=== PATIENT | male | born 1965 | race Caucasian/White ===

== ENCOUNTER 2022-04-02 10:11 | Outpatient (CLI) | payer OTHER, MEDICAID, SELFPAY ==
--- NOTE | 2022-04-02 10:15 | TELERAD_ITS ---
[address] [address] Phone:?[phone] Fax:?[phone] Referring Physician Information: Ap Andrade [address] [facility] [address] Phone:?[phone] Fax:?[phone] Patient:?Ervin Chinchilla Ariana.Alize.B:?1965 Sex:?Male Phone:?[phone] [facility] MRN:?[id number] Exam Date:?04/02/2022 ? EXAM: MRI of the RIGHT SHOULDER, without contrast CLINICAL INFORMATION: Male, 56 years old, with shoulder pain. INDICATION: Shoulder pain PRIOR SURGERY: None reported. PLAIN FILMS: None available. COMPARISONS: No prior MRIs available. TECHNICAL INFORMATION: Using a 1.5T MR scanner and a localizing surface coil: Coronals: PD, T2FS Sagittals: PDFS, T2 Axials: PD, PDFS SEDATION: None CONTRAST: None FINDINGS: Bones: Proximal humerus: No fracture or marrow edema/pathology. No humeral Hill-Sachs or reverse Hill-Sachs lesion/impaction or contusion. Glenoid: No fracture or marrow edema/pathology. No osseous Bankart lesion. Rotator cuff and muscles/tendons: Supraspinatus: Full-thickness or essentially full-thickness articular and interstitial tearing of the anterior mid supraspinatus at the insertional footprint measuring 14 mm in AP dimension (coronal series 4 image 9, and sagittal series 8 image 5). Thin articular sided fibers are felt to be intact. Torn tendon fibers are retracted approximately 1.4 cm. No muscle belly atrophy. Infraspinatus: Moderate infraspinatus thickening and tendinosis with intermediate grade articular sided tearing of the anterior distal tendon at the insertional footprint measuring 6 mm in AP dimension and involving approximately 50% tendon thickness (coronal series 4 image 12, and sagittal series 8 image 4). Teres minor: No tendinopathy, tear or atrophy. Subscapularis: Mild subscapularis tendinosis without rotator cuff tear. Deltoid: No strain or atrophy. Coracoacromial arch: Acromion morphology: The acromion has type II morphology. No discrete subacromial osseous spur or os acromiale. Acromiohumeral space: The acromiohumeral space is within normal limits. Coracohumeral space: The coracohumeral space is within normal limits. Acromioclavicular joint: Joint: Mild AC joint arthrosis without impinging inferior osteophytosis Ligaments: Coracoclavicular ligaments are intact. Bursae: Subacromial-subdeltoid: Trace subacromial bursitis Subcoracoid: No convincing subcoracoid bursal thickening/bursitis. Biceps tendon: The long head of the biceps tendon is present within the bicipital groove. The intra-articular and extra-articular segments are intact without tendinosis, tenosynovitis, or displacement. Glenohumeral joint: Effusion/cyst: No significant glenohumeral joint effusion. Articular cartilage: Humeral head: No osteochondral abnormalities. Glenoid: No osteochondral abnormalities. Loose bodies: No discrete intra-articular body within the joint. Labrum:?No discrete SLAP tear. No other definite evidence for labral tear. No paralabral ganglion cyst is identified. Inferior glenohumeral ligament/axillary pouch:?Intact. The axillary pouch is normal in thickness and signal. No evidence of adhesive capsulitis or capsular injury. IMPRESSION: 1. Full thickness or essentially full-thickness articular and interstitial tearing of the anterior supraspinatus at the insertional footprint measuring 1.4 cm in AP dimension, with retraction of torn tendon fibers approximately 1.4 cm. Thin articular sided fibers are felt to be intact. No muscle belly atrophy. 2. Moderate infraspinatus tendinosis with intermediate grade articular sided tearing of the anterior distal tendon measuring 6 mm in AP dimension. 3. Mild subscapularis tendinosis without rotator cuff tear. 4. No labral tear or paralabral cyst. 5. No tendinopathy, tear, or displacement of the long head of the biceps tendon. 6. Mild AC joint arthrosis without impinging inferior osteophytosis. Trace subacromial bursitis. 7. No osteochondral defect. KME Electronically signed on 04/02/2022 3:38:00 PM by Millie Moore M.D.
== END 2022-04-02 10:12 | disposition home or self-care (01) ==
PROVIDERS: PCP Surgery; Visit Provider Physician Assistant
DX: M25.511 Pain in right shoulder (principal); S43.431A Superior glenoid labrum lesion of right shoulder, initial encounter; M19.011 Primary osteoarthritis, right shoulder; M75.51 Bursitis of right shoulder
CPT/HCPCS: 73221

== ENCOUNTER 2022-05-08 06:09 | Day surgery (SDC) | payer OTHER, MEDICAID, SELFPAY ==
[2022-05-08] VITALS (16 sets, daily range): BP systolic 103–140; BP diastolic 50–81; PULSE 55–75; RESP 14–18; TEMP 36.4–36.6; O2SAT 93–99; BMI 28.6
[2022-05-08] MEDS: ACETAMINOPHEN 500 MG TABLET 1000 MG PO (06:36)
[2022-05-08] MEDS: CELECOXIB 200 MG CAPSULE PO (06:36)
[2022-05-08] MEDS: OXYCODONE (CR) 10 MG TAB.ER.12H PO (06:36)
[2022-05-08] MEDS: SODIUM CHLORIDE 0.9 % (FLUSH) 10 ML SYRINGE IVF (06:42)
[2022-05-08] MEDS: LACTATED RINGERS 1000 ML 1,000 ML 100 ML IV (06:42)
[2022-05-08] MEDS: MIDAZOLAM HCL 1 MG/ML inj IVP (07:16)
[2022-05-08] MEDS: fentaNYL 100 MCG/2 ML inj IVP (07:16)
--- NOTE | 2022-05-08 07:18 | SUR.PREOP ---
TIME?OUT:?0715 PT/Franco BENITES RN/Blaise SPENCE MDA?VERIFICATION?OF?SURGICAL?SITE,?PROCEDURE,?AND?CONSENT OBTAINED?PRIOR?TO?INVASIVE?PROCEDURE.
--- NOTE | 2022-05-08 07:20 | P.NB_ITS ---
Nerve Block Nerve Block Time Seen by Provider: 07:20 Date Seen: 05/08/22 Type of block requested by surgeon for post-operative analgesia: interscalene Time out performed: Yes Verification of patient name: Yes Verification of date of : Yes Site marking: site marked Name of person performing procedure: Jose Continuous monitoring Was continuous monitoring of O2 sat, B/P, manager placement, recorded every 15 minutes?: Yes Procedure Checklist: sterile prep, needles and gloves Ultrasound guided. Images saved: Yes Medications given in 5ml increments after negative aspiration: Marcaine %: 0.5 mL: 20 Needle gauge: 22 Decadron (mg): 10 Precedex (mcg): 25 Patient tolerated procedure well: Yes Block Charges Block Charge (with Pro Fee): Brachial Plexus Use of Ultrasound Machine for Block: Yes- US Guidance/pain block
[2022-05-08] MEDS: CEFAZOLIN 2 GM INJ IVP (07:56)
[2022-05-08] MEDS: SODIUM CHLORIDE IRRIG SOLUTION 3,000 ML, EPINEPHrine 1 MG IRRIGATION (08:21)
--- NOTE | 2022-05-08 09:29 | P.ORPRC_ITS ---
Procedure Note Date of procedure: 05/08/22 Procedure: SURGEON: Tuan Adamson MD SHEARER SCREEN MEASURER AND TRIMMER: Iliana Brown PA-C PREOPERATIVE DIAGNOSIS: Right shoulder rotator cuff tear, AC joint arthrosis, biceps tendinopathy POSTOPERATIVE DIAGNOSIS: Right shoulder rotator cuff tear, AC joint arthrosis, biceps tendinopathy NAME OF OPERATION: Right shoulder arthroscopic subacromial decompression, distal clavicle excision, mini open rotator cuff repair, biceps tenodesis ANESTHESIA: Supraclavicular block plus general endotracheal ESTIMATED BLOOD LOSS: 5 mL COMPLICATIONS: None SPECIMENS: None DRAINS: None PREOPERATIVE ANTIBIOTICS: Ancef 2 grams INDICATIONS: The patient is a 56-year-old male with a history of right shoulder pain secondary to the above diagnoses. Despite appropriate non operative management, they continue to have symptoms. Operative intervention was recommended. The risks, benefits and expected outcomes were discussed in detail. These included but were not limited to: Infection, bleeding, injury to blood vessel or nerve, venous thromboembolism. All questions were answered to their satisfaction. PROCEDURE: A supraclavicular block was placed by Anesthesia. General anesthesia was administered. The patient was placed in the high beach chair position. The right shoulder was prepped and draped in the usual sterile fashion. The glenohumeral joint was infiltrated with 20 mL of normal saline with epinephrine. The posterior portal was established, the arthroscope was i ntroduced. The anterior portal was established, Diagnostic arthroscopy was performed with findings as follows: The biceps shows a marked amount of intra- articular tendinopathy. The anterior, posterior and superior labrum show age related degenerative change. Articular surfaces on the humeral head and glenoid are normal. There are no loose bodies. There is a full-thickness tear of the supraspinatus. The biceps was tenotomized with the arthroscopic scissors. The labrum was debrided with the shaver. The arthroscope was placed in the subacromial space, the lateral portal was established. The Arthrex [place] was used to dissect the acromion free. The CA ligament was recessed off the anterior acromion, the AC joint was exposed. The acromioplasty was performed with the bur in the posterior portal. The bur was then placed in the lateral portal and the lateral and anterior aspect of the acromion were resected. The undersurface of the distal clavicle was resected through the lateral portal. Finally, the bur was placed in the anterior portal and the remainder of the distal clavicle was resected for a total of 10 mm. An accessory anterolateral portal was placed. The subacromial/subdeltoid bursa was aggressively debrided. There is a full-thickness tear of the supraspinatus. Arthroscopic instruments were removed. The accessory anterolateral portal was extended proximally and distally, subcutaneous dissection was taken with electrocautery to the deltoid. The deltoid was divided in line with its fibers. The static retractor was placed. The subacromial/subdeltoid bursa was debrided with the Schultz scissors. The greater tuberosity was debrided to punctate bleeding bone using the arthroscopic bur. Two Arthrex BioComposite SwiveLock anchors were placed just off the articular surface. Both limbs of the FiberWire and fiber tape were passed using the scorpion. A fiber link was placed in the leading edge of the rotator cuff x2. A soft tissue biceps tenodesis was done in the groove with a # 2 FiberWire suture x2. We tied the 2 central FiberWire sutures over the rotator cuff. We then proceeded with a lateral row of SwiveLock anchors x 2 crossing the FiberTape and incorporating the FiberWire and fiber link into each lateral row anchor. This provides an anatomic, watertight repair of the rotator cuff. There is no tension on the repair with the shoulder at 0? abduction. The wound was irrigated with normal saline off the pump. The deltoid was repaired with an 0 Vicryl in an interrupted [id number] fashion. Subcutaneous tissues were closed with a 3-0 Vicryl. Skin was closed with a 3-0 Monocryl in a subcuticular fashion. A dry dressing, polar care and sling were applied. Sponge and needle counts were correct x2. The patient tolerated the procedure well. There were no apparent complications. They were carefully transferred to the hospital bed and taken to the postanesthesia care unit in satisfactory condition. PLAN: The patient will be discharged to home. No active range of motion of the shoulder will be allowed for 6 weeks postoperatively. They can work on active range of motion of the elbow, wrist and fingers. They will follow up in the office next week for a wound check and an AP and transscapular Y-view of the shoulder prior to being seen.
--- NOTE | 2022-05-08 10:00 | W.ANESCHARGE ---
Anesthesia Charges Start Date/Time Anesthesia Start Date: 05/08/22 Anesthesia Start Time: 07:46 Stop Date/Time Anesthesia Stop Date: 05/08/22 Anesthesia Stop Time: 09:56 Summary Emergency: No
--- NOTE | 2022-05-08 10:18 | W.ANESCHARGE ---
Anesthesia Charges Start Date/Time Anesthesia Start Date: 05/08/22 Anesthesia Start Time: 07:46 Stop Date/Time Anesthesia Stop Date: 05/08/22 Anesthesia Stop Time: 09:56 Summary Emergency: No
== END 2022-05-08 12:00 | disposition home or self-care (01) ==
PROVIDERS: PCP Surgery; Visit Provider Orthopaedic Surgery
PROC: (CPT 23412; principal; 2022-05-08 07:30)
DX: M75.121 Complete rotator cuff tear or rupture of right shoulder, not specified as traumatic (principal); M19.011 Primary osteoarthritis, right shoulder; M75.21 Bicipital tendinitis, right shoulder
CPT/HCPCS: 29826; 29824; 23430; 23412; 1630; 64415; 76942; A9270; C1713; J0171; J0330; J0690; J1100; J2250; J2405; J2704; J3010; J3490; J7120; L3670

== ENCOUNTER 2023-05-19 06:11 | Day surgery (SDC) | payer OTHER, MEDICAID, SELFPAY ==
[2023-05-19] VITALS (10 sets, daily range): BP systolic 138–174; BP diastolic 75–92; PULSE 74–83; RESP 16–20; TEMP 36.9; O2SAT 96–99; BMI 28.4
[2023-05-19] MEDS: CEFAZOLIN 2 GM INJ IVP (06:10)
[2023-05-19] MEDS: SODIUM CHLORIDE 0.9 % (FLUSH) 10 ML SYRINGE IVF (07:14)
--- NOTE | 2023-05-19 07:15 | SUR.PREOP ---
Dr. Adamson aware of PCN allergy still wanted pt to recieve Ancef ancef started slowly for test dose cirulator RN aware of allergy also
[2023-05-19] MEDS: lidocaine HCL 2 % MULTIDOSE 20 ML VIAL INJECTION (07:20)
[2023-05-19] MEDS: BUPIVACAINE 0.5% 30 ML INJECTION (07:20)
--- NOTE | 2023-05-19 08:16 | PM.ORPRC ---
Procedure Note Date of procedure: 05/19/23 Procedure: Preop diagnosis: Right upper extremity carpal tunnel syndrome Postop diagnosis: Right upper extremity carpal tunnel syndrome Procedure: Right upper extremity carpal tunnel release Anesthesia: Local Surgeon: Tuan Adamson MD assistant superintendent for curriculum: HUBER Mazariegos EBL: 5 mL Complications: None Specimens: None Drains: None Indications: The patient has a history of right upper extremity carpal tunnel syndrome symptoms. Despite appropriate nonoperative management consisting of nighttime bracing and occupational therapy they continue to have symptoms. Operative intervention was recommended. The risks, benefits alternatives and expected outcomes were discussed in detail. These included but were not limited to: Infection, bleeding, injury to blood vessel or nerve, venous thromboembolism. All questions were answered to their satisfaction. The patient was placed supine on the operating room table. Local anesthesia was established with 0.5% Marcaine without epinephrine and 2% lidocaine without epinephrine. The hand was prepped and draped in usual sterile fashion. The limb was elevated the forearm pneumatic tourniquet was inflated to 250 mm of mercury. A longitudinal incision was made centered over the radial border of the ring finger at the base of the palm. Subcutaneous dissection was sharply taken through the palmar fascia and the palmaris brevis to the transverse carpal ligament. The ligament was divided in line with the incision. Proximal and distal dissection was carried with tenotomy and Metzenbaum scissors for a wide decompression of the carpal tunnel. The tourniquet was released , bleeding was controlled with direct pressure. The wound was closed with a 3-0 nylon. A bulky dry dressing was applied, sponge and needle counts were correct x 2. The patient tolerated the procedure well, there were no apparent complications. They were sent to same day surgery in satisfactory condition. Plan: Use of the hand as tolerates. Discontinue the intraoperative dressing on postoperative day 3 and may get the wound wet as tolerates. Follow up in the office in 2 weeks for a wound check and suture removal.
== END 2023-05-19 08:41 | disposition home or self-care (01) ==
PROVIDERS: PCP Surgery; Visit Provider Orthopaedic Surgery
PROC: (CPT 64721; principal; 2023-05-19 07:15)
DX: G56.01 Carpal tunnel syndrome, right upper limb (principal)
CPT/HCPCS: 64721; J0665; J0690

== ENCOUNTER 2024-02-16 11:35 | Emergency (ER) | payer OTHER, SELFPAY ==
[2024-02-16 11:38] VITALS: BP 156/87; PULSE 80; RESP 16; TEMP 36.8; O2SAT 95; BMI 29.5
--- NOTE | 2024-02-16 11:41 | XR_ITS ---
Patient: ISABEL NAIDU Facility:?[facility] Patient ID:?[id number] Site Patient ID:?[id number]. Site :?1965 Study:?XRay-Extremity Left SHOULDER-02/16/2024 11:58:27 AM Ordering Physician:SARAH Final Report: INDICATION: Fell off a trailer, left-sided shoulder pain COMPARISON: None. TECHNIQUE: Three views left shoulder FINDINGS: No fracture. Normal alignment. Mild degeneration at the acromioclavicular joint. The glenohumeral joint is preserved. No focal bone lesions. Normal bone mineralization. Soft tissues are normal. No foreign body. IMPRESSION: No acute or traumatic findings of the left shoulder. Dictated by Aniyah Sánchez MD @ 02/16/2024 12:02:37 PM Signed by:?Aniyah Sánchez MD @02/16/2024 12:02:37 PM (Electronic Signature)
--- OUTSIDE RECORDS SUMMARY | 2024-02-16 12:34 | XMS_ITS | Referral Summary ---
Author Name Unknown Organization [facility] Address [address] [place] [id number] Care Team Providers Care Yardage Control Clerk Name Role Phone Jacqueline Estevez MD Primary Care Provider Unavailabl e Allergies Active Allergy Reactions Criticality Noted Date Comments Influenza Virus Vaccine 07/04/2021 Penicillins Nausea and Vomiting 07/04/2021 Tetanus Toxoid 07/04/2021 Medications Medication Sig Dispensed Refills Start Date End Date Status losartan (COZAAR) 100 MG tablet Take 100 mg by mouth daily Active tadalafil (CIALIS) 20 MG tablet Take 10 mg by mouth every 3 days Active aspirin (ASA) 81 MG chewable tabletIndications:P arapelvic renal cyst Take 1 tablet (81 mg) by mouth daily 07/22/2021 Active acetaminophen (TYLENOL) 325 MG tabletIndications:P arapelvic renal cyst Take 1-2 tablets (325-650 mg) by mouth every 4 hours as needed for mild pain or fever 07/09/2021 Active oxyCODONE (ROXICODONE) 5 MG tabletIndications:P arapelvic renal cyst Take 1-2 tablets (5-10 mg) by mouth every 6 hours as needed for moderate to severe pain 16 tablet 07/09/2021 Active polyethylene glycol (MIRALAX) 17 GM/Dose powderIndications:P arapelvic renal cyst Take 17 g by mouth daily Discontinue if your stools become loose. 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 Other hydronephrosis 07/08/2021 Type 2 diabetes mellitus wit h both eyes affected by mild nonproliferative retinopathy without macular edema, without long-term current use of insulin 06/17/2016 Essential hypertension 11/21/2014 GERD (gastroesophageal reflux disease) 5 Social History Tobacco Use Types Packs/Day Years Used Date Smoking Tobacco: Former Cigarettes Q uit: 2009 Smokeless Tobacco: Never Alcohol Use Standard Drinks/Week Comments Yes 0 (1 standard drink = 0.6 oz pure alcohol) Beer: 4-6 daily, sometimes more Adolescent Education Answer Date Record ed Getting School Help Needed Not on file 06/20 Sex and Gender Information Value Date Recorded Sex Assigned at Not on file Gender Identity Not on file Sexual Orientation Not on file Last Filed Vital Signs Vital Sign Reading Time Taken Comments Blood Pressure 133/70 07/10/2021 11:14 AM CDT Pulse 70 07/10/2021 11:14 AM CDT Temperature 36.8 ??C (98.3 ??F) 07/10/2021 11:14 AM C DT Respiratory Rate 16 07/10/2021 11:14 AM CDT Oxygen Saturation 93% 07/10/2021 11:14 AM CDT Inhaled Oxygen Concentration - - Weight 87.8 kg (193 lb 9.6 oz) 07/08/2021 12:25 PM CDT Height 177.8 cm (5' 10) 07/08/2021 12:25 PM CDT Body Mass Index 27.78 07/08/2021 12:25 PM CDT Plan of Treatment Not on file Medical Devices Implanted Type Area Blueprint Assembler Device Identifier Shelf Expiration Date Model / Serial / Lot Stent Ureteral Percuflex Plus [id number] - [id number] Implanted:Qty : 1 on 07/08/2021 by Douglas Morrow MD at [facility] Stent Right: Ureter [employer] [id number] 03/26/2024 [id number] Procedures Procedure Name Priority Date/Time Associated Diagnosis Comments CTA CHEST ABDOMEN PELVIS W CONTRAST STAT 07/09/2021 8:52 AM CDT BASIC METABOLIC PANEL Routine 07/09/2021 5:38 AM CDT HEMOGLOBIN A1C Routine 07/08/2021 1:28 PM CDT ALBUMIN RANDOM URINE QUANTITATIVE Routine 01/01/2006 8:44 AM CDT HIV 1 AND 2 ANTIBODY ([facility]) Routine 01/01/2006 8:35 AM CDT HEPATITIS C ANTIBODY Routine 01/01/2006 8:35 AM CDT LIPID PROFILE Routine 01/01/2006 8:35 AM CDT from Last 3 Months or Most Recently Relevant to Health Maintenance Results * CTA Chest Abdomen Pelvis w Contrast (07/09/2021 8:52 AM CDT) Anatomical Region Laterality Modality Lower Extremity, SUBRAD IR P ROCEDURE, UMP CT CTA, RAD CT Computed Tomography 07/09/2021 8:44 AM CDT Impressions 07/09/2021 11:40 AM CDT IMPRESSION: 1. ??Thoracic and abdominal aorta, pulmonary arteries and brachiocephalic, visceral and iliofemoral arteries are normal. 2. ??Expected day 1 postop change related to decortication large parapelvic cyst right kidney (as detailed above) with development of a few small parenchymal perfusion defects and an overall decrease in previously seen hydronephrosis. 3. ??Right ureteral stent well-positioned. 4. ??Small volume hemoperitoneum in the pelvis. 5. ??Hepatic steatosis and high likelihood of cirrhosis as well as splenic enlargement and recanalization of the umbilical vein which are signs of portal hypertension. 6. ??At delayed imaging there are several linear foci of persistent nephrographic contrast material is nonspecific but could indicate mild acute kidney injury. 7. 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 Narrative 07/09/2021 11:40 AM CDT EXAM: CTA CHEST ABDOMEN PELVIS W CONTRAST LOCATION: [facility] DATE/TIME: 07/09/2021 8:44 AM INDICATION: Sudden onset abdominal pain, tenderness and distention in a patient status post 07/08/2021 laparoscopic decortication of a large parapelvic cyst right kidney and stent placement. Hypertension. Diabetes. COMPARISON: [facility] AP 01/28/2021 03/20/2020. TECHNIQUE: Noncontrast CT imaging of the chest and upper abdomen. CT angiogram chest abdomen pelvis during arterial phase of injection of IV contrast. Delayed phase CT imaging abdomen and pelvis. 2D and 3D MIP reconstructions were performed by the x ray technologist. Dose reduction techniques were used. CONTRAST: 100 mL Isovue 370. FINDINGS: CTA CHEST, ABDOMEN and PELVIS: Normal caliber thoracic aorta with no dissection or sign of acute aortic syndrome. Normal caliber pulmonary arteries with no visible pulmonary emboli. Brachiocephalic arteries unremarkable. Mild to moderate calcified atheromatous plaque scattered throughout the normal caliber abdominal aorta and iliofemoral arteries. Abdominal aorta and mesenteric, renal and iliofemoral arteries are widely patent with no dissection, stenosis or filling defect. LUNGS AND PLEURA: Trace amount of secretion in the dependent portion of the right lower lobe bronchus, minimal dependent atelectasis posterior basilar segment each lower lobe. Lungs are otherwise clear. No pleural effusion. MEDIASTINUM/AXILLAE: No lymphadenopathy. Heart size within normal limits. Mild thickening and calcification of the aortic valve leaflets. No pericardial effusion. CORONARY ARTERY CALCIFICATION: Mild calcification RCA and moderate calcification LAD coronary artery. HEPATOBILIARY: Moderate diffuse hepatic steatosis. Significant contour irregularity liver and asymmetric hypertrophy of the lateral segment left hepatic highly suspicious for cirrhosis. No liver mass. Main portal vein patent. Recanalization of the small caliber umbilical vein. No bile duct dilatation or calcified gallstones. PANCREAS: Normal. SPLEEN: Spleen is enlarged at 15 cm. ADRENAL GLANDS: Normal. RIGHT KIDNEY AND URETER: Interval placement well-positioned right ureteral stent and laparoscopic decortication and decompression of the large right parapelvic renal cyst which has decreased in size from 9.5 x 9.0 x 8.0 cm to 6.5 x 5.0 x 4.5 cm today. Several small foci of decreased renal cortical parenchymal perfusion posterolateral aspect mid right kidney have developed. No leakage of contrast material from the right urinary collecting system. Previously seen moderate right pyelocaliectasis has decreased. Typical day 1 postsurgical findings of small volume pneumoperitoneum upper abdomen anteriorly, gas in the right retroperitoneal fat and subcutaneous and intramuscular emphysema right lower chest and abdominal wall. 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 At delayed imaging there are several linear foci of persistent nephrographic contrast material. Left kidney and ureters otherwise normal. BLADDER: Hill catheter is well positioned in the bladder. Bladder otherwise normal. BOWEL: Normal appendix. Mild colonic diverticulosis. Bowel is otherwise normal with no obstruction or inflammatory change. Small volume hemoperitoneum in the pelvis. LYMPH NODES: No lymphadenopathy. PELVIC ORGANS: No pelvic mass or fluid. MUSCULOSKELETAL: No suspicious bone lesions. Old right rib fractures. Procedure Note Osmar Bautista MD - 07/09/2021 EXAM: CTA CHEST ABDOMEN PELVIS W CONTRAST LOCATION: [facility] DATE/TIME: 07/09/2021 8:44 AM INDICATION: Sudden onset abdominal pain, tenderness and distention in apatient status post 07/08/2021 laparoscopic decortication of a largeparapelvic cyst right kidney and stent placement. Hypertension.Diabetes. COMPARISON: [facility] 01/28/2021 03/20/2020. TECHNIQUE: Noncontrast CT imaging of the chest and upper abdomen. CTangiogram chest abdomen pelvis during arterial phase of injection of IVcontrast. Delayed phase CT imaging abdomen and pelvis. 2D and 3D MIPreconstructions were performed by the x ray technologist. Dose reduction techniques were used. CONTRAST: 100 mL Isovue 370. FINDINGS: CTA CHEST, ABDOMEN and PELVIS: Normal caliber thoracic aorta with nodissection or sign of acute aortic syndrome. Normal caliber pulmonaryarteries with no visible pulmonary emboli. Brachiocephalic arteriesunremarkable. Mild to moderate calcified atheromatous plaque scattered throughout thenormal caliber abdominal aorta and iliofemoral arteries. Abdominal aortaand mesenteric, renal and iliofemoral arteries are widely patent with nodissection, stenosis or filling defect. LUNGS AND PLEURA: Trace amount of secretion in the dependent portion ofthe right lower lobe bronchus, minimal dependent atelectasis posteriorbasilar segment each lower lobe. Lungs are otherwise clear. No pleuraleffusion. MEDIASTINUM/AXILLAE: No lymphadenopathy. Heart size within normal limits.Mild thickening and calcification of the aortic valve leaflets. Nopericardial effusion. CORONARY ARTERY CALCIFICATION: Mild calcification RCA and moderatecalcification LAD coronary artery. HEPATOBILIARY: Moderate diffuse hepatic steatosis. Significant contourirregularity liver and asymmetric hypertrophy of the lateral segment lefthepatic highly suspicious for cirrhosis. No liver mass. Main portal veinpatent. Recanalization of the small caliber umbilical vein. No bile duct dilatation or calcified gallstones. PANCREAS: Normal. SPLEEN: Spleen is enlarged at 15 cm. ADRENAL GLANDS: Normal. RIGHT KIDNEY AND URETER: Interval placement well-positioned right ureteralstent and laparoscopic decortication and decompression of the large rightparapelvic renal cyst which has decreased in size from 9.5 x 9.0 x 8.0 cmto 6.5 x 5.0 x 4.5 cm today. Several small foci of decreased renal cortical parenchymal perfusionposterolateral aspect mid right kidney have developed. No leakage ofcontrast material from the right urinary collecting system. Previouslyseen moderate right pyelocaliectasis has decreased. Typical day 1 postsurgical findings of small volumepneumoperitoneum upper abdomen anteriorly, gas in the rightretroperitoneal fat and subcutaneous and intramuscular emphysema rightlower chest and abdominal wall. LEFT KIDNEY AND URETER: Normal variant duplication of the left urinarycollecting system with the duplicated ureters either joining one anotherat the ureterovesical junction or inserting at the ureterovesical junctionadjacent to one another. At delayed imaging there are several linear foci of persistent nephrographiccontrast material. Left kidney and ureters otherwise normal. BLADDER: Hill catheter is well positioned in the bladder. Bladderotherwise normal. BOWEL: Normal appendix. Mild colonic diverticulosis. Bowel is otherwisenormal with no obstruction or inflammatory change. Small volumehemoperitoneum in the pelvis. LYMPH NODES: No lymphadenopathy. PELVIC ORGANS: No pelvic mass or fluid. MUSCULOSKELETAL: No suspicious bone lesions. Old right rib fractures. IMPRESSION: 1. Thoracic and abdominal aorta, pulmonary arteries and brachiocephalic,visceral and iliofemoral arteries are normal. 2. Expected day 1 postop change related to decortication large parapelviccyst right kidney (as detailed above) with development of a few smallparenchymal perfusion defects and an overall decrease in previously seenhydronephrosis. 3. Right ureteral stent well-positioned. 4. Small volume hemoperitoneum in the pelvis. 5. Hepatic steatosis and high likelihood of cirrhosis as well as splenicenlargement and recanalization of the umbilical vein which are signs ofportal hypertension. 6. At delayed imaging there are several linear foci of persistentnephrographic contrast material is nonspecific but could indicate mildacute kidney injury. 7. 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 Urszula Levin MD IMG CT ORDERABLES * Basic metabolic panel (07/09/2021 5:38 AM CDT) Sodium 140 136 - 145 mmol/L 07/09/2021 6:39 AM CDT [facility] Potassium 4.0 3.5 - 5.0 mmol/L 07/09/2021 6:39 AM CDT [facility] Chloride 107 98 - 107 mmol/L 07/09/2021 6:39 AM CDT [facility] Carbon Dioxide (CO2) 26 22 - 31 mmol/L 07/09/2021 6:39 AM CDT [facility] Anion Gap 7 5 - 18 mmol/L 07/09/2021 6:39 AM CDT [facility] Urea Nitrogen 9 8 - 22 mg/dL 07/09/2021 6:39 AM CDT [facility] Creatinine 0.86 0.70 - 1.30 mg/dL 07/09/2021 6:39 AM CDT [facility] Calcium 8.8 8.5 - 10.5 mg/dL 07/09/2021 6:39 AM CDT [facility] Glucose 103 70 - 125 mg/dL 07/09/2021 6:39 AM CDT [facility] GFR Estimate >90 >60 mL/min/1.7 3m2 07/09/2021 6:39 AM CDT [facility] Comment:As of April 07, 2021, eGFR is calculated by the CKD-EPI creatinine equation, without race adjustment. eGFR can be influenced by muscle mass, exercise, and diet. The reported eGFR is an estimation only and is only applicable if the renal function is stable. Blood STRUCTURE OF RIGHT UPPER LIMB / Unknown Venipuncture / Unknown 07/09/2021 5:38 AM CDT 07/09/2021 6:09 AM CDT Douglas Morrow MD LAB - BLOOD ORDERABL ES [facility] [address] [place] [address], [facility] [phone] * Hemoglobin A1c (07/08/2021 1:28 PM CDT) Hemoglobin A1C 5.6 <=5.6 % 07/08/2021 1:56 PM CDT [facility] Comment: Prediabetes: 5.7 to 6.4% ? Diabetes: ??>=6.5% Patients with Hgb F >5%, total bilirubin >10.0 mg/dL, abnormal red cell turnover, severe renal or hepatic disease or malignancy should not have this A1C method used to diagnose or monitor diabetes. Blood STRUCTURE OF RIGHT UPPER LIMB / Unknown Venipuncture / Unknown 07/08/2021 1:28 PM CDT 07/08/2021 1:45 PM CDT Joie Barajas MD LAB - BLOOD ORDERAB LES Performing Organization Address City/[facility]/ZIP Co de Phone Number [facility] [address] [place] [address], [facility] [phone] * Microalbumin quantitative random urine (01/01/2006 8:44 AM CDT) Albumin Urine mg/L 6 mg/L [facility] Albumin Urine mg/g Cr 5.38 0 - 20 mg/g Cr [facility] 01/01/2006 8:44 AM CDT 01/01/2006 8:46 AM CDT Jad Richard MD LAB - URINE ORDERABL ES [facility] * (ABNORMAL) Lipid panel (01/01/2006 8:35 AM CDT) Cholesterol 204(H) 0 - 200 mg/dL [facility] Comment: LDL Cholesterol is the primary guide to therapy: LDL-cholesterol goal in high risk patients is <100 mg/dL and in very high risk patients is <70 mg/dL. The NCEP recommends further evaluation of: patients with cholesterol <200 mg/dL if additionalrisk factors are present, cholesterol >240 mg/dL, triglycerides >150 mg/dL, or HDL <40 mg/dL. Triglycerides 128 0 - 150 mg/dL [facility] HDL Cholesterol 66 40 - 110 mg/dL [facility] LDL Cholesterol Calculated 113 0 - 129 mg/dL [facility] Comment: LDL Cholesterol is the primary guide to therapy: LDL-cholesterol goal in high risk patients is <100 mg/dL and in very high risk patients is <70 mg/dL. VLDL-Cholesterol 26 0 - 30 mg/dL [facility] Cholesterol/HDL Ratio 3.1 0.0 - 5.0 [facility] 01/01/2006 8:35 AM CDT 12/31/2005 10:24 AM CDT Jad Richard MD LAB - BLOOD ORDERABL ES Performing Organization Address City/[facility]/ZIP Co de Phone Number [facility] * HIV 1 and 2 Antibody (01/01/2006 8:35 AM CDT) HIV 1&2 Antibody Negative NEG [facility] 01/01/2006 8:35 AM CDT 12/31/2005 10:24 AM CDT Jad Richard MD LAB - BLOOD ORDERABL ES Performing Organization Address City/[facility]/ZIP Co de Phone Number [facility] * Hepatitis C antibody (01/01/2006 8:35 AM CDT) Hepatitis C Antibody Negative NEG [facility] 01/01/2006 8:35 AM CDT 12/31/2005 10:24 AM CDT Jad Richard MD LAB - BLOOD ORDERABL ES [facility] from Last 3 Months or Most Recently Relevant to Health Maintenance Advance Directives For more information, please contact: [phone] * Full Code (Latest Code Status on File) Date Activated Date Inactivated Comments 07/08/2021 12:27 PM 07/10/2021 4:53 PM All basic and advanced life-sustaining interventions are performed as appropriate Question Answer Comments Code status determined by: Discussion with se nt/ legal decision maker Care Teams Yardage Control Clerk Relationship Specialty Start Date End Date Jacqueline Estevez MD PCP - General Family Medicine 06/26/21
--- OUTSIDE RECORDS SUMMARY | 2024-02-16 12:34 | XMS_ITS | Clinical Summary ---
Author Name Unknown Organization [facility] Address [address] [place] [id number] Care Team Providers Care Scientific Editor Name Role Phone Jacqueline Estevez MD Primary [...] Date Smoking Tobacco: Former Cigarettes Q uit: 2008 Smokeless Tobacco: Never Alcohol Use Standard Drinks/Week [...] 07/08/2021 12:25 PM CDT Plan of Treatment Health Maintenance Due Date Last Done Comments ADVANCE CARE PLANNING 1963 ANNUAL REVIEW OF HM ORDERS 1963 CT COLONOGRAPHY 1963 DIABETIC FOOT EXAM 1963 EYE EXAM 1963 FIT 1963 FLEX SIG 1963 YEARLY PREVENTIVE VISIT 1963 sDNA (Cologuard) 1963 Pneumococcal Vaccine: Pediatrics (0 to 5 Years) and At-Risk Patients (6 to 64 Years) (1 of 2 - PCV) 1969 COLONOSCOPY 1973 COLORECTAL CANCER SCREENING 1973 DTAP/TDAP/TD IMMUNIZATION (1 - Tdap) 1988 LIPID 01/01/2007 01/01/2006 MICROALBUMIN 01/01/2007 01/01/2006 ZOSTER IMMUNIZATION (1 of 2) 2013 A1C 10/08/2021 07/08/2021 BMP 07/09/2022 07/09/2021, 07/08/2021, 01/01/2006 LUNG CANCER SCREENING 07/09/2022 07/09/2021 COVID-19 Vaccine (1 - 2022-2 4 season) 2023 RSV VACCINE ( & 60+ ) (1 - 1-dose 60+ series) 2023 PHQ-2 (once per calendar year) 2023 INFLUENZA VACCINE (Season Ended) 2024 06/11/2011 HEPATITIS C SCREENING Completed 01/01/2006 HIV SCREENING Completed 01/01/2006 HPV IMMUNIZATION Aged Out No longer e ligible based on patient's age to complete this topic IPV IMMUNIZATION Aged Out No longer e ligible based on patient's age to complete this topic MENINGITIS IMMUNIZATION Aged Out No l onger eligible based on patient's age to complete this topic RSV MONOCLONAL ANTIBODY Aged Out No l onger eligible based on patient's age to complete this topic Medical Devices Implanted Type Area Research Physiologist Device Identifier Shelf Expiration Date Model / Serial / Lot Stent Ureteral Percuflex Plus [id number] - [id number] Implanted:Qty : 1 on 07/08/2021 by Douglas Morrow MD at [facility] Stent Right: U[employer]ter [employer] [id number] 03/26/2024 [id number] / [id number] Procedures Procedure Name Priority Date/Time Associated Diagnosis [...] CTA CHEST ABDOMEN PELVIS W CONTRAST LOCATION: [facility] DATE/TIME: 07/09/2021 8:44 AM INDICATION: Sudden onset [...] 3D MIP reconstructions were performed by the chief technologist. Dose reduction techniques were used. CONTRAST: [...] CTA CHEST ABDOMEN PELVIS W CONTRAST LOCATION: [facility] DATE/TIME: 07/09/2021 8:44 AM INDICATION: Sudden onset [...] and 3D MIPreconstructions were performed by the chief technologist. Dose reduction techniques were used. CONTRAST: [...] - 145 mmol/L 07/09/2021 6:39 AM CDT [facility] Potassium 4.0 3.5 - 5.0 mmol/L 07/09/2021 6:39 AM CDT [facility] Chloride 107 98 - 107 mmol/L 07/09/2021 6:39 AM T [facility] Carbon Dioxide (CO2) 26 22 - 31 mmol/L 07/09/2021 6:39 AM T [facility] Anion Gap 7 5 - 18 mmol/L 07/09/2021 6:39 AM CDT [facility] Urea Nitrogen 9 8 - 22 mg/dL 07/09/2021 6:39 AM T [facility] Creatinine 0.86 0.70 - 1.30 mg/dL 07/09/2021 6:39 AM T [facility] Calcium 8.8 8.5 - 10.5 mg/dL 07/09/2021 6:39 AM T [facility] Glucose 103 70 - 125 mg/dL 07/09/2021 6:39 AM T [facility] GFR Estimate >90 >60 mL/min/1.7 3m2 07/09/2021 6:39 AM [facility] Comment:As of April 07, 2021, eGFR [...] Morrow MD LAB - BLOOD ORDERABL ES [facility] [address] [place], [place] [address] [phone] * Hemoglobin A1c (07/08/2021 1:28 PM CDT) Hemoglobin A1C 5.6 <=5.6 % 07/08/2021 1:56 PM CDT [facility] Comment: Prediabetes: 5.7 to 6.4% [...] Barajas MD LAB - BLOOD ORDERAB LES [facility] [address] [phone] * Microalbumin quantitative random urine (01/01/2006 8:44 AM CDT) Albumin Urine mg/L 6 mg/L [facility] Albumin Urine mg/g Cr 5.38 0 - 20 mg/g Cr [facility] 01/01/2006 8:44 AM CDT 01/01/2006 8:46 AM CDT Jad Richard MD LAB - URINE ORDERABL ES Performing Organization Address City/[facility] Co de Phone Number [facility] * (ABNORMAL) Lipid panel (01/01/2006 8:35 [...] - BLOOD ORDERABL ES Performing Organization Address [facility] Co de Phone Number [facility] * HIV 1 and 2 Antibody (01/01/2006 8:35 AM CDT) HIV 1&2 Antibody Negative NEG [facility] 01/01/2006 8:35 AM CDT 12/31/2005 10:24 AM CDT Jad Richard MD LAB - BLOOD ORDERABL ES Performing Organization Address [facility] Co de Phone Number [facility] * Hepatitis C antibody (01/01/2006 8:35 AM CDT) Hepatitis C Antibody Negative NEG [facility] 01/01/2006 8:35 AM CDT 12/31/2005 10:24 AM CDT Jad Richard MD LAB - BLOOD ORDERABL ES Performing Organization Address [facility] Co de Phone Number [facility] from Last 3 Months or Most Recently Relevant to Health Maintenance Advance Directives For more information, please contact: [phone] * Full Code (Latest Code Status on File) Date Activated Date Inactivated Comments 07/08/2021 12:27 PM 07/10/2021 4:53 PM All basic and advanced life-sustaining interventions are performed as appropriate Question Answer Comments Code status determined by: Discussion with se nt/ legal decision maker Care Teams Scientific Editor Relationship Specialty Start Date End Date Jacqueline Estevez MD PCP - General Family Medicine 06/26/21
--- OUTSIDE RECORDS SUMMARY | 2024-02-16 12:34 | XMS_ITS | Clinical Summary ---
Author Name Unknown Organization [facility] Address [place], [place] [address] Care Team Providers Care Packing Machine Can Feeder Name Role Phone Yony Obrien MD Primary Care Provider [phone] Allergies Active Allergy Reactions Criticality Noted Date Comments Penicillins Nausea And Vomiting 11/21/2014 Had a fever after a chicken scratch Tetanus Antitoxin Sedation 12/06/2007 Medications Medication Sig Dispensed Refills Start Date End Date Status aspirin (ECOTRIN) 81 mg enteric coated tablet Take 1 tablet by mouth once daily with a meal. 0 06/17/2016 Active lancets (ACCU-CHEK FASTCLIX)Indications: Type 2 diabetes mellitus without complication, without long-term current use of insulin (HC) Dispense item covered by pt ins. E11.65 NIDDM type II, uncontrolled - Test 3 times/day, Reason: High A1C 102 Each 6 07/23/2016 Active blood-glucose meterIndications:Type 2 diabetes mellitus without complication, without long-term current use of insulin (HC) Dispense meter, test strips, lancets covered by pt ins. E11.9 NIDDM type II - Test 1 time/day 1 Device 02/27/2020 Active acetaminophen (TYLENOL) 325 mg tablet Take 325-650 mg by mouth. 07/09/2021 Active tadalafiL (CIALIS;ADCIRCA) 20 mg tabletIndications:ED (erectile dysfunction) of organic origin TAKE 1/2 TABLET BY MOUTH EVERY 72 HOURS. TAKE 30MN BEFORE SEXUAL ACTIVITY. 10 Tablet 11 09/28/2021 Active blood sugar diagnostic (Accu-Chek SmartView Test Strip) stripIndications:Type 2 diabetes mellitus with both eyes affected by mild nonproliferative retinopathy without macular edema, without long-term current use of insulin (HC) Dispense item covered by pt ins. E11.9 NIDDM type II - Test 1 time/day 50 Each 11 2022 Active blood sugar diagnostic (Accu-Chek Guide test strips) stripIndications:Type 2 diabetes mellitus with both eyes affected by mild nonproliferative retinopathy without macular edema, without long-term current use of insulin (HC) Dispense item covered by pt ins. 100 Each 3 12/22/2022 Active losartan (COZAAR) 100 mg tabletIndications:Ess ential hypertension Take 1 Tablet (100 mg) by mouth once daily. 90 Tablet 3 05/29/2023 Active metFORMIN (GLUCOPHAGE) 500 mg tabletIndications:Typ e 2 diabetes mellitus with both eyes affected by mild nonproliferative retinopathy without macular edema, without long-term current use of insulin (HC) Take 1 Tablet (500 mg) by mouth once daily with a meal. 90 Tablet 3 05/29/2023 Active rosuvastatin (CRESTOR) 10 mg tabletIndications:Cor onary artery disease involving wichita coronary artery of wichita heart without angina pectoris Take 1 Tablet (10 mg) by mouth once daily. 90 Tablet 3 05/29/2023 Active benzonatate (TESSALON) 200 mg capsuleIndications:[place] non-recurrent maxillary sinusitis Take 1 Capsule (200 mg) by mouth 3 times daily if needed for Cough. 21 Capsule 10/20/2023 Active albuterol HFA (ProAir HFA) 90 mcg/actuation inhalerIndications:[place] non-recurrent maxillary sinusitis,Wheezing Inhale 1-2 Puffs by mouth every 6 hours if needed for Shortness of Breath 1st choice. 1 Each 10/20/2023 Active Active Problems Problem Noted Date Diagnosed Date Colon polyp 12/19/2021 Overview: Colonoscopy 11/2021 TA, repeat in 7 years Alcoholic cirrhosis of liver without ascites Overview: Noted on CT 06/2021. Pt commits to quit drinking alcohol Parapelvic renal cyst 07/09/2021 Overview: 9.3 cm on right. Had a right retrograde pyelogram, stent placement and decortication of the cyst. Type 2 diabetes mellitus wit h both eyes affected by mild nonproliferative retinopathy without macular edema, without long-term current use of insulin 06/17/2016 Essential hypertension 11/21/2014 GERD (gastroesophageal reflux disease) 5 FOREIGN BODY, CORNEA-OD 06/02/2000 Resolved Problems Problem Noted Date Diagnosed Date Resolved Date Guaiac + stool 07/05/2019 05/06/2022 Encounters Date Type Department Care Team Description 02/02/2024 2:00 PM CDT Office Visit [facility] [address] [place] [address] Boom Martinez AuD Hearing Aid (Fitting) 02/02/2024 Travel 01/28/2024 Orders Only [facility] Scanner 1 scan: (1-Ord) INCOMING RECORDS-DIABETIC EYE, [facility], 01/28/2024 01/12/2024 9:30 AM CDT Office Visit [facility] [address] [place] [address] Boom Martinez AuD Hearing Aid (Consultation) 01/12/2024 Travel 01/08/2024 3:30 PM CDT Office Visit [facility] [address] [place] [address] Dilcia Young PA Consult (Pressure sensation in both ears; Sensorineural hearing loss (SNHL) of both ears -- audio done 12/24/23) 01/08/2024 Travel 12/24/2023 3:00 PM CDT Office Visit [facility] [address] [place] [address] Boom Martinez AuD Hearing Problem 12/24/2023 Travel 11/27/2023 9:40 AM APPLICATION ARCHITECT Office Visit [facility] [address] [place] [address] Yony Obrien MD Diabetes 11/27/2023 Travel from Last 3 Months Immunizations Name Administration Dates Next Due Influenza, IIV3 (Age >=3 years) 06/11/2011 Family History Medical History Relation Name Comments Coronary artery disease Brother Premature CHD (under age 60) Brother Cancer Father lung Coronary artery disease Father Cancer Maternal Grandfather lung Cancer Mother lung survived Coronary artery disease Mother Diabetes Mother Hypertension Mother Genetic Other mother CAD, maria isabel g CA, bladder CA~father CAD Relation Name Status Comments Brother Father Maternal Grandfather Mother Other Social History Tobacco Use Types Packs/Day Years Used Date Smoking Tobacco: Former Cigarettes Q uit: 01/05/2004 Smokeless Tobacco: Never Tobacco Cessation:Counseling Given: Yes Comments:quit 2003 Alcohol Use Standard Drinks/Week Comments Yes 24 (1 standard drink = 0.6 oz pu re alcohol) 1//night, more on weekends PHQ-2 Answer Date Recorded PHQ-2 TOTAL SCORE 0 10/27/2023 Social Connections Answer Date Recorded Frequency of Communication with Friends and Fami ly 0 10/20/2023 Alcohol Use Answer Date Recorded How often do you have a drink containing alcohol ? 2 2022 How many drinks containing a lcohol do you have on a typical day when you are drinking? 1 2022 How often do you have five or more drinks on one occasion? 1 2022 Financial Resource Strain Answer Date R ecorded Difficulty of Paying Living Expenses 3 10/20/2023 Difficulty of Paying Living Expenses Not on file 10/20/2023 Food Insecurity Answer Date Recorded Worried About Running Out of Food in the Last Ye ar 1 10/20/2023 Transportation Needs Answer Date Record ed Lack of Transportation (Medical) 1 10/20/2023 Housing Stability Answer Date Recorded Unable to Pay for Housing in the Last Year 1 10/20/2023 Sex and Gender Information Value Date Recorded Sex Assigned at Not on file Gender Identity Not on file Sexual Orientation Not on file Obstetrics History Last Filed Vital Signs Vital Sign Reading Time Taken Comments Blood Pressure 121/76 11/27/2023 9:43 AM APPLICATION ARCHITECT Pulse 73 11/27/2023 9:43 AM APPLICATION ARCHITECT Temperature 36.8 ??C (98.2 ??F) 10/27/2023 9:04 AM CS T Respiratory Rate 18 10/27/2023 9:04 AM APPLICATION ARCHITECT Oxygen Saturation 95% 11/27/2023 9:43 AM APPLICATION ARCHITECT Inhaled Oxygen Concentration - - Weight 94 kg (207 lb 4.8 oz) 11/27/2023 9:43 AM APPLICATION ARCHITECT Height 171.5 cm (5' 7.5) 05/29/2023 3:26 PM CDT Body Mass Index 31.99 05/29/2023 3:26 PM CDT Plan of Treatment Upcoming Encounters Date Type Department Care Team (Late st Contact Info) Description 02/23/2024 9:30 AM CDT Office Visit [facility] [address] [place] [address] Boom Martinez, AuD [address] [place] [address] 04/11/2024 9:30 AM CDT Office Visit [facility] [address] [place] [address] Yony Obrien MD [address] [place] [address] Health Maintenance Due Date Last Done Comments Pneumococcal series for age 6-64 (1 of 2 - PCV) 1969 Zoster (shingles) series for age 50+ (1 of 2) 2013 COVID-19 vaccine series ( - 2022- season) 2023 BMI (ht and wt on same day) for age 18+ 05/29/2024 05/29/2023, 10/30/2022, 12/02/2019, Additional history exists Influenza for age 50-64 05/29/2024 06/11/2011 Depression screening for age 12+ 10/27/2024 10/27/2023, 10/26/2023, 03/24/2022, Additional history exists Lipids for age 45-75 10/30/2027 10/30/2022, 10/28/2021, 01/21/2021, Additional history exists Colonoscopy through age 75 12/18/202812/18, 12/18/2021, 12/18/2021 HIV for age 15-65 Completed 08/19/2022 Hepatitis C screening for ag e 18-79 Completed 08/19/2022, 06/27/2019 Goals Goal Patient Goal Type Associated Problems Recent Progress Patient-Stated? Author BLOOD PRESSURE - MAINTAINS BP less than 140/90 Blood Pressure No Jacqueline Estevez MD Procedures Procedure Name Priority Date/Time Associated Diagnosis Comments SCAN-EYE EXAM 01/28/2024 12:00 AM CDT HEARING AID MEDICAL CLEARANCE Routine 01/12/2024 10:27 AM CDT Sensorineural hearing loss (SNHL) of both ears LC LIPID PANEL Routine 10/30/2022 9:40 AM APPLICATION ARCHITECT Coronary artery disease involving wichita coronary artery of [place]ita heart without angina pectoris ANTI HIV 1/2 Routine 08/19/2022 9:54 AM APPLICATION ARCHITECT Alcoholic cirrhosis of liver without ascites (HC) ANTI HCV Routine 08/19/2022 9:54 AM APPLICATION ARCHITECT Alcoholic cirrhosis of liver without ascites (HC) COLONOSCOPY DIAGNOSTIC Routine 12/18/2021 9:42 AM CDT Positive fecal occult blood test from Last 3 Months or Most Recently Relevant to Health Maintenance Results * SCAN-EYE EXAM (01/28/2024 12:00 AM CDT) Scanner OTHER * LC LIPID PANEL (10/30/2022 9:40 AM APPLICATION ARCHITECT) Cholesterol, Total 101 100 - 199 mg/dL 11/01/2022 11:08 AM [facility] Triglycerides 79 0 - 149 mg/dL 11/01/2022 11:08 AM [facility] HDL Cholesterol 51 >39 mg/dL 11:08 AM [facility] ([facility] VLDL Cholesterol Atul 16 5 - 40 mg/dL 11/01/2022 11:08 AM [facility] LDL Chol Calc (NIH) 34 0 - 99 mg/dL 11/01/2022 11:08 AM [facility] ([facility] Blood BLOOD SPECIMEN / Unknown Venipuncture / Unknown 10/30/2022 9:40 AM APPLICATION ARCHITECT 10/30/2022 9:41 AM APPLICATION ARCHITECT Narrative [facility] ([facility]) - 11/01/2022 11:08 AM APPLICATION ARCHITECT Performed at: ??[address] ??[id number] Hair Mixer: Phill Felton MD, Phone: ??[phone] Yony Obrien MD SEND OUTS [facility] ([facility]) [address] [place] [address], * ANTI HCV (08/19/2022 9:54 AM APPLICATION ARCHITECT) HEPATITIS C ANTIBODY Non-React griffin Non-React griffin 08/20/2022 10:21 AM APPLICATION ARCHITECT [facility] Comment:Antibodies to HCV no t detected; does not exclude the possibility of exposure to HCV. Blood BLOOD SPECIMEN / Unknown Venipuncture / Unknown 08/19/2022 9:54 AM APPLICATION ARCHITECT 08/19/2022 10:02 AM APPLICATION ARCHITECT Johnson Carter MD SEND OUTS Performing Organization Address City/[facility]/ZIP Co de Phone Number [facility] [address] [place] [address], [place] * ANTI HIV 1/2 (08/19/2022 9:54 AM APPLICATION ARCHITECT) HIV-1/HIV-2 ANTIBODY Non-Reacti ve Non-Reacti ve 08/20/2022 6:22 PM APPLICATION ARCHITECT [facility] Comment:HIV-1 p24 and HIV-1/ HIV-2 Ab not detected. Blood BLOOD SPECIMEN / Unknown Venipuncture / Unknown 08/19/2022 9:54 AM APPLICATION ARCHITECT 08/19/2022 10:02 AM APPLICATION ARCHITECT Johnson Carter MD SEND OUTS [facility] [address] [place] [address], [place] * COLONOSCOPY (12/18/2021 9:51 AM CDT) 12/18/2021 9:51 AM CDT Narrative Transcriptions Johnson Carter MD - 12/18/2021 10:46 AM CDT Patient Name: Ervin Chinchilla Procedure Date: 12/18/2021 Gender: Male Date of : 1965 Admit Type: Outpatient Procedure: Colonoscopy Proceduralist: Johnson Carter MD , Christina Nam, RN(Nurse) Referring MD: Jacqueline Estevez Indications/Pre-Op Diagnosis: This is the patient's first colonoscopy, Positive fecal immunochemical test Medications: Fentanyl 200 micrograms IV, Midazolam 2 mgIV Procedure Description: The patient had risks, benefits and alternatives explained to andgave informed consent. The patient had a stable cardiopulmonary status and judged an adequate candidate for conscious sedation. The [id number] was passed through the anus and advanced tothe cecum, identified by appendiceal orifice and ileocecal valve. The colonoscopy was performed without difficulty. The patient toleratedthe procedure well. The quality of the bowel preparation was good. The ileocecal valve, appendiceal orifice, and rectum were photographed. Complications: No immediate complications. Estimated Blood Loss & Specimen: Estimated blood loss: none. Findings: The perianal and digital rectal examinations were normal. A 3 mm polyp was found in the cecum. The polyp was sessile. The polyp was removed with a cold snare. Resection and retrieval werecomplete. A 2 mm polyp was found in the sigmoid colon. The polyp was sessile.The polyp was removed with a cold snare. Resection was complete, but the polyp tissue was not retrieved. Scattered small and large-mouthed diverticula were found in thesigmoid colon, descending colon and ascending colon. A single small angiodysplastic lesion without bleeding was found inthe proximal ascending colon. The exam was otherwise without abnormality on direct and retroflexion views. Impressions/Post-Op Diagnosis: - One 3 mm polyp in the cecum, removed with a cold snare. Resectedand retrieved. - One 2 mm polyp in the sigmoid colon, removed with a cold snare. Complete resection. Polyp tissue not retrieved. - Diverticulosis in the sigmoid colon, in the descending colon and in the ascending colon. - A single non-bleeding colonic angiodysplastic lesion. - The examination was otherwise normal on direct and retroflexionviews. Recommendation: - Patient has a contact number available for emergencies. The signsand symptoms of potential delayed complications were discussed with the patient. Return to normal activities tomorrow. Written discharge instructions were provided to the patient. - Resume previous diet. - Continue present medications. - Await pathology results. - Repeat colonoscopy is recommended. The colonoscopy date will be determined after pathology results from today's exam become available for review. Moderate Sedation: Moderate (conscious) sedation was administered by the endoscopy nurse and supervised by the endoscopist. The following parameters were monitored: oxygen saturation, heart rate, respiratory rate, blood pressure, adequacy of pulmonary ventilation and reponse to care. Please refer to the patient's medical record flowsheets and nursing notes for moderate sedation details. Total physician intraservice time was 17 minutes. Johnson Carter MD 12/18/2021 10:46:49 AM This report has been signed electronically. Note Initiated On: 12/18/2021 9:51 AM Procedure Code(s): --- Professional --- 65759, Colonoscopy, flexible; with removalof tumor(s), polyp(s), or other lesion(s) bysnare technique Diagnosis Code(s): --- Professional --- K63.5, Polyp of colon K55.20, Angiodysplasia of colon without hemorrhage R19.5, Other fecal abnormalities K57.30, Diverticulosis of large intestine without perforation or abscess withoutbleeding CPT copyright 2020 [employer]. All rights reserved. The codes documented in this report are preliminary and upon death surveys coder reviewmay be revised to meet current compliance requirements. Scope In: 10:24:22 AM Scope Withdrawal Time 0 hours 9 minutes 16 seconds Scope Out: 10:38:26 AM Johnson Carter MD PROCEDURE ORD from Last 3 Months or Most Recently Relevant to Health Maintenance Care Teams Packing Machine Can Feeder Relationship Specialty Start Date End Date Yony Obrien MD [address] [place] [address] PCP - General Family Practice 02/02/24
--- OUTSIDE RECORDS SUMMARY | 2024-02-16 12:35 | XMS_ITS | Data Portability ---
Author Name Unknown Address [address] [place] [address] Phone [phone] Organization [facility], [facility] Address [address] [facility] [place] [address] Assessment Encounter Date Assessment Date Assessment LastModified by Organization Details LastModified Time 04/09/2021 04/09/2021 55 year old male with right hydronephrosis secondary to a large right parapelvic cyst. Not available 04/08/2021 12:57:24 07/31/2021 07/31/2021 56 year old male with right hydronephrosis secondary to a right parapelvic cyst. Not available 07/29/2021 10:34:44 08/05/2022 08/05/2022 57 year old male with a history of right hydronephrosis secondary to a right parapelvic cyst. Not available 08/05/2022 09:25:39 Plan of Treatment Reminders Order Date Submit Date Provider Last Modified By Organization Details Last Modified Time Details Appointments None recorded. Lab urinalysis, dipstick 2021 022 [facility], [address], [address], [place], [address], 17:12:36 urinalysis, dipstick 2020 021 [facility], [address], [address], [place], [address], 17:31:09 Referral None recorded. Procedures None recorded. Surgeries cystoscopy with retrograde pyelogram (SURG) 2020 021 [email or web address] Not available 10:02:11 Imaging US, kidney 2020 021 [facility], [address], [address], [place], [address], 13:19:26 Medication Orders None recorded. Patient TargetsNo targets recorded. Patient Instructions Encounter Date Encounter Id Patient Instructions Last Modified By Organization Details Last Modified Time 08/05/2022 [id number] Right hydronephrosis/Ri ght parapelvic cyst: His follow up imaging shows no residual hydronephrosis. He is now unobstructed and he is asymptomatic. He will return if new issues arise or symptoms recur. Not available 08/05/2022 09:26:18 Reason for Referral None Reported. Results Created Date Observation Date Name Description Value Unit Range Abnormal Flag LastModifiedBy Organization Detail LastModifiedTime 04/09/2004/09/2021 UA DIP CS ADVAN TUS color -advantus YELLOW yellow Not Available [facility] [address] [facility] [address], [place], [address], 04/09/2021 17:31:08 04/09/20 21 04/09/2021 UA DIP CS ADVAN TUS appearance -advantus CLEAR clear Not Available [facility] [address] [facility] [address], [place], [address], 04/09/2021 17:31:08 04/09/20 21 04/09/2021 UA DIP CS ADVAN TUS glucose -advantus 500 mg/dL negati ve abnormal Not Available [facility] [address] [facility] [address], [place], [address], 04/09/2021 17:31:08 04/09/20 21 04/09/2021 UA DIP CS ADVAN TUS bilirubin -advantus NEGATI VE negati ve Not Available [facility] [address] [facility] [address], [place], [address], 04/09/2021 17:31:08 04/09/20 21 04/09/2021 UA DIP CS ADVAN TUS ketones -advantus NEGATI VE mg/dL negati ve Not Available [facility] [address] [facility] [address], [place], [address], 04/09/2021 17:31:08 04/09/20 21 04/09/2021 UA DIP CS ADVAN TUS sp. gravity -advantus 1.010 1.010- 1.025 Not Available [facility] [address] [facility] [address], [place], [address], 04/09/2021 17:31:08 04/09/20 21 04/09/2021 UA DIP CS ADVAN TUS pH -advantus 6.0 5.0-8. 0 Not Available [facility] [address] [place] [address] [address], [place], [address], 04/09/2021 17:31:08 04/09/20 21 04/09/2021 UA DIP CS ADVAN TUS protein -advantus NEGATI VE mg/dL negati ve Not Available [facility] [address] [facility] [address], [place], [address], 04/09/2021 17:31:08 04/09/20 21 04/09/2021 UA DIP CS ADVAN TUS urobilinogen -advantus 0.2 normal Not Available [facility] [address] [facility] [address], [place], [address], 04/09/2021 17:31:08 04/09/20 21 04/09/2021 UA DIP CS ADVAN TUS nitrites -advantus NEGATI VE negati ve Not Available [facility] [address] [facility] [address], [place], [address], 04/09/2021 17:31:08 04/09/20 21 04/09/2021 UA DIP CS ADVAN TUS blood -advantus NEGATI VE negati ve Not Available [facility] [address] [facility] [address], [place], [address], 04/09/2021 17:31:08 04/09/20 21 04/09/2021 UA DIP CS ADVAN TUS leukocytes -advantus NEGATI VE negati ve Not Available [facility] [address] [place] [address] [address], [place], [address], 04/09/2021 17:31:08 04/09/20 21 04/09/2021 UA DIP CS ADVAN TUS performed by Lee Alicea Not Available [facility] [address] [place] [address] [address], [place], [address], 04/09/2021 17:31:08 04/09/20 21 04/09/2021 UA DIP CS ADVAN TUS total urine volume (mL) 80 /mL Not Available [facility] [address] [place] [address] [address], [place], [address], 04/09/2021 17:31:08 08/05/20 22 08/05/2022 UA DIP CS ADVAN TUS color -advantus YELLOW yellow Not Available [facility] [address] [place] [address] [address], [place], [address], 08/05/2022 17:12:36 08/05/20 22 08/05/2022 UA DIP CS ADVAN TUS appearance -advantus CLEAR clear Not Available [facility] [address] [place] [address] [address], [place], [address], 08/05/2022 17:12:36 08/05/20 22 08/05/2022 UA DIP CS ADVAN TUS glucose -advantus NEGATI VE mg/dL negati ve Not Available [facility] [address] [place] [address] [address], [place], [address], 08/05/2022 17:12:36 08/05/20 22 08/05/2022 UA DIP CS ADVAN TUS bilirubin -advantus NEGATI VE negati ve Not Available [facility] [address] [facility] [address], [place], [address], 08/05/2022 17:12:36 08/05/20 22 08/05/2022 UA DIP CS ADVAN TUS ketones -advantus TRACE mg/dL negati ve abnormal Not Available [facility] [address] [facility] [address], [place], [address], 08/05/2022 17:12:36 08/05/20 22 08/05/2022 UA DIP CS ADVAN TUS sp. gravity -advantus 1.025 1.010- 1.025 Not Available [facility] [address] [facility] [address], [place], [address], 08/05/2022 17:12:36 08/05/20 22 08/05/2022 UA DIP CS ADVAN TUS pH -advantus 7.0 5.0-8. 0 Not Available [facility] [address] [facility] [address], [place], [address], 08/05/2022 17:12:36 08/05/20 22 08/05/2022 UA DIP CS ADVAN TUS protein -advantus NEGATI VE mg/dL negati ve Not Available [facility] [address] [place] [address] [address], [place], [address], 08/05/2022 17:12:36 08/05/20 22 08/05/2022 UA DIP CS ADVAN TUS urobilinogen -advantus 0.2 normal Not Available [facility] [address] [facility] [address], [place], [address], 08/05/2022 17:12:36 08/05/20 22 08/05/2022 UA DIP CS ADVAN TUS nitrites -advantus NEGATI VE negati ve Not Available [facility] [address] [facility] [address], [place], [address], 08/05/2022 17:12:36 08/05/20 22 08/05/2022 UA DIP CS ADVAN TUS blood -advantus NEGATI VE negati ve Not Available [facility] [address] [facility] [address], [place], [address], 08/05/2022 17:12:36 08/05/20 22 08/05/2022 UA DIP CS ADVAN TUS leukocytes -advantus NEGATI VE negati ve Not Available [facility] [address] [facility] [address], [place], [address], 08/05/2022 17:12:36 08/05/20 22 08/05/2022 UA DIP CS ADVAN TUS performed by LEE Alicea Not Available [facility] [address] [facility] [address], [place], [address], 08/05/2022 17:12:36 08/05/20 22 08/05/2022 UA DIP CS ADVAN TUS total urine volume (mL) 60 /mL Not Available [facility] [address] [place] [address] [address], [place], [address], 08/05/2022 17:12:36 04/04/20 21 01/28/2021 CT, abdom en + pelvi s, w/wo contr ast No observ ation record ed. Not Available 04/04/2021 17:43:09 08/01/20 22 08/01/2022 US, retro perit oneum , compl ete No observ ation record ed. [facility] [address], [place], [address], 08/01/2022 14:20:21 Result Notes None recorded. Procedures Surgical History Date Name Laterality Status Provider Name and Address Organization Details Recorded Time 03/28/20 Diagnostic colonoscopy completed Not Available Health Note 08/03/2022 11:34:53 07/31/20 Cystoscopy with foreign body/stent removal completed Douglas Morrow MD [address] [facility], [place], [address], [place] [facility] 07/29/2021 10:33:56 Imaging Results Imaging Date Name Status LastModified by Organiz ation Details LastModified Time 01/28/2021 CT, abdomen + pelvis, w/wo contrast completed Information not available 04/04/2021 17:43:09 08/01/2022 US, retroperitone um, complete completed [facility] [address] [place] [address] [address], [place], [address], 08/01/2022 14:20:21 Procedure Notes None recorded. Medical Equipment None Reported. Allergies Allergen ID Allergen Name Allergen Category Reaction Reaction Severity Criticality Documentation Date Start Date Code Code System Note Provider Name and Address Organization Details Recorded Time 359740 Medicinal product containin g penicilli n and acting as antibacte rial agent (product) medicatio n other Not available Not available 04/05/2021 13417 05 SNOMED very sick Not Available Health Note 11:34:51 748234 tetanus immune globulin, human medicatio n other Not available Not available 04/05/2021 25073 RxNorm n/a Not Available Health Note 11:34:51 Medications Name Sig Start Date Stop Date Status Note LastModified by Organization Details LastModified Time accu-chek smartview test st USE TO TEST BLOOD SUGAR ONCE DAILY active Not Available Not Available No t Available metformin 500 mg tablet TAKE 1 TABLET (500 MG) BY MOUTH TWO TIMES DAILY WITH MEALS. active Not Available Not Available No t Available clindamyc in HCl 300 mg capsule TAKE ONE CAPSULE BY MOUTH FOUR TIMES A DAY UNTIL GONE 08/05 completed HN: Patient reports no longer taking Not Available Not Available Not Available hydrocodo ne 5 mg-acetam inophen 325 mg tablet TAKE ONE TABLET BY MOUTH EVERY 4-6 HOURS NEEDED FOR PAIN NOT RELIEVED BY NSAIDS 08/05 completed HN: Patient reports no longer taking Not Available Not Available Not Available ketorolac 0.5 % eye drops INSTILL 1 DROP BOTH EYES 3 TIMES A DAY active Not Available Not Available No t Available oxycodone -acetamin ophen 5 mg-325 mg tablet TAKE 1-2 TAB BY MOUTH EVERY 4-6 HOURS NEEDED FOR PAIN active Not Available Not Available No t Available prednisol one acetate 1 % eye drops,carmen pension INSTILL 1 DROP BOTH EYES 3 TIMES A DAY active Not Available Not Available No t Available cephalexi n 500 mg capsule TAKE 1 CAPSULE (500MG) BY MOUTH 4 TIMES DAILY FOR 10 DAYS. active Not Available Not Available No t Available polyethyl chrissy glycol 3350 17 gram/dose oral powder MIX 17GM IN 4 TO 8OZ OF LIQUID AND DRINK ONCE DAILY. DISCONTI NUE IF YOUR STOOLS BECOME LOOSE. 08/05 completed HN: Patient reports no longer taking Not Available Not Available Not Available losartan 100 mg tablet TAKE 1 TABLET (100 MG) BY MOUTH ONCE DAILY. active Not Available Not Available No t Available oxycodone 5 mg tablet TAKE 1 OR 2 TABLETS BY MOUTH EVERY 6 HOURS NEEDED FOR MODERATE TO SEVERE PAIN 08/05 completed HN: Patient reports no longer taking Not Available Not Available Not Available Adult Low Dose Aspirin 81 mg tablet,de layed release 81 mg 1/day 07/31 completed HN: Patient reports no longer taking Not Available Not Available Not Available rosuvasta tin 10 mg tablet TAKE 1 TABLET (10 MG) BY MOUTH ONCE DAILY. active Not Available Not Available No t Available tadalafil 20 mg tablet TAKE 1/2 TABLET BY MOUTH EVERY 72 HOURS. TAKE 30MN BEFORE SEXUAL ACTIVITY . active Not Available Not Available No t Available Accu-Chek Guide test strips active HN: Patient reports taking Not Available Not Available Not Available rosuvasta tin 10 mg sprinkle capsule 10mg 1/day active Not Available Not Available No t Available Vitals Date Recorded Body height Body mass index (BMI) Body weight Provider Name and Address Organization Details Last Updated DateTime 08/05/2022 177.8 cm 28 kg/m2 22464.6173 638165 g Not Available Health Note 08/05/2022 08:57:29 Date Recorded Body height Body weight Body mass index (BMI) Provider Name and Address Organization Details Last Updated DateTime 04/09/2021 175.26 cm 78541.53388 56027 g 32.3 kg/m2 Not Available Health Note 04/09/2021 08:23:59 Date Recorded Body mass index (BMI) Body weight Body height Provider Name and Address Organization Details Last Updated DateTime 07/31/2021 28.4 kg/m2 91469.20985 07625 g 175.26 cm Not Available Health Note 07/31/2021 15:33:12 Social History Question Answer Notes LastModified by Organizat ion Details LastModified Time Tobacco Smoking Status Former Smoker Not Available Health Note 08/03/2022 11:34:54 What Is Your Level Of Alcohol Consumption? Occasional [email or web address] Information not available 08/03/2022 What Is Your Level Of Caffeine Consumption? Moderate [email or web address] Information not available 08/03/2022 How Much Tobacco Do You Chew? None [email or web address] Information not available 08/03/2022 Do You Or Have You Ever Used E-cigarettes Or Vape? Never Used Electronic Cigarettes [email or web address] Information not available 08/03/2022 When Did You Quit Smoking? 11-15yearssinc elastcigarette [email or web address] Information not available 08/05/2022 Recreational Drug Use No [email or web address] Information not available 04/05/2021 Marital Status Single [email or web address] Informatio n not available 04/05/2021 What Was The Date Of Your Most Recent Tobacco Screening? 08/05/2022 [email or web address] Information not available 08/03/2022 Do You Or Have You Ever Used Smokeless Tobacco? Never Used Smokeless Tobacco [email or web address] Information not available 08/03/2022 Do You Use Any Illicit Or Recreational Drugs? No [email or web address] Information not available 08/03/2022 How Many Years Have You Smoked Tobacco? 20 [email or web address] Information not available 08/03/2022 Sex: Male Functional Status None recorded. Mental Status None recorded. Family History Relationship Description Onset Age of this Age Resolved Age Notes Mother Family history of di abetes mellitus Mother Family history of ca rdiac disorder Notes:Mother has diabetes Mo ther has heart disease Mother has lung cancer Father has lung cancer Medical History Condition Response Sexually Transmitted Infection N Diabetes Y Bleeding Disorder N High Blood Pressure Y Kidney Stones N Cancer N Lung Disease N Depression N High Cholesterol N GERD/Acid Reflux N Heart Disease N Immunizations Vaccine Type Date Status Provider Name and Address Organization Details Recorded Time Influenza, seasonal, injectable 06/11/[address] [facility] 07/31/2021 15:46:47 Past Encounters Encounter ID Performer Location Encounter Start Date Encounter Closed Date Diagnosis/Indication Diagnosis SNOMED-CT Code [id number] Douglas Mrorow MD [employer] [facility] [address] [place] [address] 04/09/2021 08:23:54 04/09/2021 09:14:37 Hydronephrosis [id number] Parapelvic renal cyst 43 [id number] [facility] [address] [facility],[address] [place] [address] 07/31/2021 15:33:04 07/31/2021 16:53:03 Parapelvic renal cyst [id number] Hydronephrosis [id number] [facility] [address] [place] [address] 08/05/2022 08:57:26 08/05/2022 11:54:09 Parapelvic renal cyst [id number] Hydronephrosis 69237719 Health Concerns Section Related Observation LastModified by Organization Detai ls LastModified Time None Recorded Concern Status LastModified by Organization Details LastModified Time None Recorded Advance Directives Directive None Recorded Payers Encounter Date Sequence Insurance Name Policy Number Policy Wayne Covered Member ID Wayne Member ID Guarantor Name 08/05/2022 1 [employer] - OPEN ACCESS CHOICE (HMO) [id number] Ervin Chinchilla [id number] Ervin Chinchilla 08/05/2022 2 [place] Ervin Chinchilla [id number] Ervin Chinchilla 07/31/2021 1 [employer] - OPEN ACCESS CHOICE (HMO) [id number] Ervin Chinchilla [id number] Ervin Chinchilla 04/09/2021 1 [facility] Ervin Chinchilla [id number] Ervin Chinchilla Notes Date Note Type Note Provider Name and Address Organization Details Recorded Time 04/09/2021 text/html HPI Notes: This is a 55 year old male who is referred by Dr. Estevez for the evaluation and management of a right renal cyst and right hydronephrosis. 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 He underwent a CT at that time which showed a large parapelvic cyst, but this did not show any signs of obstruction. He really does not have any pain from this. More recently a CT of the abdomen and pelvis with and without contrast was performed on 01/28/2021 which showed a 9.3 cm right parapelvic cyst with associated compressive obstruction of the right ureter. He denies gross hematuria. Douglas Morrow MD [address] [place] [address],[address], [place], [address], [facility] 04/09/2021 09:11:07 07/31/2021 text/html HPI Notes: This is a 56 year old male with right hydronephrosis secondary to a large right parapelvic cyst here for post-operative follow up. 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 He underwent a CT at that time which showed a large parapelvic cyst, but this did not show any signs of obstruction A CT of the abdomen and pelvis with and without contrast was performed on 01/28/2021 which showed a 9.3 cm right parapelvic cyst with associated compressive obstruction of the right ureter. He is now status post cystoscopy, right retrograde pyelogram, right ureteral stent placement, and robotic-assisted laparoscopic right renal cyst decortication on 07/08/2021. Here today for post-operative stent removal. Douglas Morrow MD [address] [place] [address],[address], [place], [address], [facility] 07/31/2021 16:44:19 08/05/2022 text/html HPI Notes: This is a 57 year old male here for the ongoing management of right hydronephrosis secondary to a large parapelvic cyst. 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 He underwent a CT at that time which showed a large parapelvic cyst, but this did not show any signs of obstruction. A CT of the abdomen and pelvis with and without contrast was performed on 01/28/2021 which showed a 9.3 cm right parapelvic cyst with associated compressive obstruction of the right ureter. He is now status post cystoscopy, right retrograde pyelogram, right ureteral stent placement, and robotic-assisted laparoscopic right renal cyst decortication on 07/08/2021. He underwent a surveillance renal ultrasound on 08/01/2022 which showed no residual hydronephrosis on the right. He is doing well. He denies flank pain. He denies gross hematuria. Douglas Morrow MD [address] [facility],[address], [place], [address], [facility] 08/05/2022 11:22:11
--- NOTE | 2024-02-16 12:48 | ED_ITS ---
HPI - Extremity Injury (Upper) General Date Seen: 02/16/24 Chief Complaint: Extremity Pain/Injury, Upper Stated Complaint: fell off trailer,left shoulder pain Time Seen by Provider: 02/16/24 11:36 Source: patient Mode of arrival: ambulatory Limitations: no limitations History of Present Illness HPI narrative: Patient is a 58-year-old male presenting for left shoulder pain. He states while at work today he slipped and fell about 4 ft onto the ground. Denies hitting his head. Initially states his form hit the ground 1st and then his left shoulder. He is now having pain with movement of the shoulder. States pain feels like it is all around the sole drink cannot pinpoint 1 spot that hurts the worst. Denies any other injuries. Is otherwise doing well. Denies numbness or weakness of the left arm. Related Data Home Medications Medication Instructions Recorded Confirmed aspirin 81 mg tablet,delayed 81 mg PO QDAY 03/26/22 06/03/23 release losartan 100 mg tablet 100 mg PO QDAY 03/26/22 06/03/23 multivitamin 1 tab PO QDAY 03/26/22 06/03/23 psyllium husk 0.4 gram capsule 0.4 g PO QDAY 03/26/22 06/03/23 (Daily Fiber) acetaminophen 325 mg capsule 325 mg PO Q6H PRN 05/07/22 06/03/23 rosuvastatin 10 mg tablet 10 mg PO 08/04/22 06/03/23 metformin 500 mg tablet 500 mg PO DAILY 05/11/23 06/03/23 Allergies Allergy/AdvReac Type Severity Reaction Status Date / Time penicillin V Allergy Intermediate got sick Verified 06/03/23 10:04 and has to sleep for 2 days Tetanus Vaccines and Toxoid Allergy Verified 06/03/23 10:04 flu shot Allergy Intermediate Uncoded 06/03/23 10:04 Review of Systems Narrative: Pertinent systems reviewed and were negative unless stated in HPI PFSH PFSH Medical History (Updated 02/16/24 @ 12:53 by Yony Haskins DO) Colon polyp ?K63.5 - Polyp of colon (ICD-10) Parapelvic renal cyst ?N28.1 - Cyst of kidney, acquired (ICD-10) Alcoholic cirrhosis of liver without ascites ?K70.30 - Alcoholic cirrhosis of liver without ascites (ICD-10) Guaiac + stool ?R19.5 - Other fecal abnormalities (ICD-10) 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 ?E11.3293 - Type 2 diabetes mellitus with mild nonproliferative diabetic retinopathy without macular edema, bilateral (ICD-10) GERD (gastroesophageal reflux disease) ?K21.9 - Gastro-esophageal reflux disease without esophagitis (ICD-10) Essential (primary) hypertension ?I10 - Essential (primary) hypertension (ICD-10) Corneal foreign body ?T15.00XA - Foreign body in cornea, unspecified eye, initial encounter (ICD- 10) Surgical History (Updated 05/28/23 @ 15:48 by Russell Augustin) History of carpal tunnel release (05/19/23) ?Z98.890 - Other specified postprocedural states (ICD-10) Status post right rotator cuff repair (05/08/22) ?Z98.890 - Other specified postprocedural states (ICD-10) History of arthroscopy of shoulder ?Z98.890 - Other specified postprocedural states (ICD-10) History of renal stent History of ankle surgery ?Z98.890 - Other specified postprocedural states (ICD-10) Social History (Reviewed 06/03/23 @ 10:05 by Iwona Abebe ~ [facility], [facility]) Smoking Status: Former smoker How often do you have a drink containing alcohol: 4 or more times a week How many standard drinks containing alcohol do you have on a typical day: 3 or 4 How often do you have six or more drinks on one occasion: Weekly AUDIT-C Alcohol total score: 8 Non-prescribed substance use: denies use Caffeine: Yes (2 cups coffee/day) Exam Narrative: Exam Narrative: Const: Well-nourished, Well-developed, in mild distress Eyes: PERRL, no conjunctival injection, and symmetrical lids HENT: Atraumatic external nose and ears. Moist mucous membranes. CVS: Radial pulses +2 bilaterally MSK:Extremities w/o deformity, Tenderness to palpation noted throughout left shoulder. Decreased range of motion no the left shoulder both passive and active secondary to pain. Skin: Warm, Dry. No rashes or lesions. Neuro: Normal Muscle tone, No focal neurological deficits. Psych: Awake, Alert, & Oriented x3. Appropriate mood and affect. Const: Vital Signs, click to edit/add: Vital Signs - 24 hr 02/16/24 11:38 Temperature 98.2 F Pulse Rate [Pulse Oximeter] 80 Respiratory Rate 16 Blood Pressure [Ri ght Upper Arm] 156/87 H Pulse Oximetry 95 Oxygen Delivery Me thod Room Air Course Vital Signs Vital signs: Initial Vital Signs Temperature 98.2 F 02/16/24 11:38 Temperature Source Temporal Artery Scan 02/16/24 11:38 Pulse Rate 80 02/16/24 11:38 Respiratory Rate 16 02/16/24 11:38 Blood Pressure 156/87 H 02/16/24 11:38 Blood Pressure Mean 110 H 02/16/24 11:38 Blood Pressure Position Sitting 02/16/24 11:38 Pulse Oximetry 95 02/16/24 11:38 Oxygen Delivery Method Room Air 02/16/24 11:38 Vital Signs Temperature 98.2 F 02/16/24 11:38 Pulse Rate 80 02/16/24 11:38 Respiratory Rate 16 02/16/24 11:38 Blood Pressure 156/87 H 02/16/24 11:38 Pulse Oximetry 95 02/16/24 11:38 Oxygen Delivery Method Room Air 02/16/24 11:38 Temperature 98.2 F 02/16/24 11:38 Pulse Rate 80 02/16/24 11:38 Respiratory Rate 16 02/16/24 11:38 Blood Pressure 156/87 H 02/16/24 11:38 Pulse Oximetry 95 02/16/24 11:38 Oxygen Delivery Method Room Air 02/16/24 11:38 MDM - Extremity Injury (Upper) MDM Narrative Medical decision making narrative: Patient is a 58-year-old male presenting for Left shoulder pain. This occurred while at work and from a fall. Will x-ray the left shoulder. No other injuries noted. No abrasions noted to the arm. No tenderness to elbow or wrist. He is otherwise doing well. X-ray reviewed myself with the radiologist shows no acute fractures. Insert x-ray cannot see all soft tissue and with his pain there is always concern for ligamentous or other similar injuries. Do that we will put him in a sling and have him follow-up with his primary care provider or Orthopedics for repeat evaluation. He is agreeable to this plan. Imaging Data left shoulder xray: Attestation: I have reviewed the pertinent imaging results. Radiologist's impression: No acute or traumatic findings of the left shoulder. Dictated by Aniyah Sánchez MD @ 02/16/2024 12:02:37 PM Discharge Plan Discharge Clinical Impression: Acute shoulder pain Qualifiers: Laterality: left Qualified Code(s): M25.512 - Pain in left shoulder Patient Disposition: Home, Self-Care Condition: Stable Instructions: Shoulder Pain (ED) Additional Instructions: I do recommend he follow-up with orthopedics for repeat evaluation of this shoulder. Call [phone] to set up an appointment. Return to emergency department for new or worsening symptoms. Take Tylenol and ibuprofen for pain Prescriptions: No Action rosuvastatin 10 mg tablet 10 mg PO losartan 100 mg tablet 100 mg PO QDAY aspirin 81 mg tablet,delayed release (DR/EC) 81 mg PO QDAY psyllium husk [Daily Fiber] 0.4 gram capsule 0.4 g PO QDAY multivitamin Tablet 1 tab PO QDAY metformin 500 mg tablet 500 mg PO DAILY acetaminophen 325 mg capsule 325 mg PO Q6H PRN Follow Up/Referrals: Yony Obrien MD [Primary Care Provider] - Stand Alone Forms: [employer] Info Instructions
== END 2024-02-16 12:59 | disposition home or self-care (01) ==
PROVIDERS: Emergency Provider Student in an Organized Health Care Education/Training Program; PCP Surgery
DX: M25.512 Pain in left shoulder (principal); W17.89XA Other fall from one level to another, initial encounter
CPT/HCPCS: 73030; 99282; 99283